=== PATIENT | female | born 1975 | race African-American/Black ===

== ENCOUNTER 2022-01-22 12:49 | Emergency (ER) | payer MEDICAID ==
[~2022-01-22] VITALS: Ht 162.6 cm; Wt 125.0 kg
[2022-01-22 13:14] VITALS: BP 155/90
[2022-01-22] MEDS ORDERED: KETOROLAC 15MG/ML VIAL IM ONE (14:45)
[2022-01-22] MEDS ORDERED: NAPR500T7 MT (17:14)
== END 2022-01-22 17:36 | disposition home or self-care (01) ==
LOC: ER 12:49
DX: M79.671 Pain in right foot (principal); Z98.890 Other specified postprocedural states; Z86.39 Personal history of other endocrine, nutritional and metabolic disease
CPT/HCPCS: 29515; 73610; 73630; 96372; 99284; J1885